=== PATIENT | male | born 1960 | race Two or more races ===

== ENCOUNTER 2016-10-21 16:00 | Inpatient (IN) | payer MEDICAID, OTHER ==
[~2016-10-21] VITALS: Ht 170.2 cm; Wt 72.3 kg
[2016-10-21] MEDS ORDERED: SODIUM CHLORIDE 0.9% 1,000 ML IV ONE (16:30)
[2016-10-21 16:49] LABS: Basophils # (auto) 0.1 uL; Basophils % (auto) 0.5 % (0.0-2.0); Eosinophils # (auto) 0.1 uL; Eosinophils % (auto) 0.9 % (0.0-7.0); Hematocrit 41.3 % (41.0-53.0); Hemoglobin 13.5 g/dL (13.5-17.5); Lymphocytes # (auto) 1.5 uL; Lymphocytes % (auto) 15.2 % (10.0-50.0); Mean Corpuscular Hemoglobin 28.9 pg (28.0-32.0); Mean Corpuscular Hgb Conc. 32.7 g/dL (32.0-36.0); Mean Corpuscular Volume 88.3 fL (80.0-100.0); Mean Platelet Volume 8.4 fL (7.4-10.4); Monocytes # (auto) 0.4 uL; Monocytes % (auto) 3.8 % (0.0-12.0); Neutrophils % (auto) 79.6 % (37.0-80.0); Platelet Count (auto) 304 10^3/uL (140-450); Red Cell Distribution Width 13.8 % (11.6-16.0)
[2016-10-21 17:13] LABS: Bilirubin, Total 0.3 mg/dL (0.2-1.0); Calcium 8.8 mg/dL (8.5-10.1); Potassium 4.2 mmol/L (3.5-5.1); Total Protein 7.1 g/dL (6.4-8.2)
[2016-10-21 17:26] LABS: INR 1.09 (0.9-1.15); Prothrombin Time 11.2 sec (9.37-12.3)
[2016-10-21] MEDS ORDERED: SODIUM CHLORIDE 0.9% 1,000 ML IVB ONE (17:37)
[2016-10-21] MEDS ORDERED: PANTOPRAZOLE SODIUM 40 MG/10 ML VIAL IV ONE ×2 (17:45→19:45)
[2016-10-21 18:36] LABS: Urine Bilirubin Negative (Negative); Urine Blood Negative /uL (Negative); Urine Color Yellow (Yellow); Urine Glucose Normal (Normal); Urine Hyaline Cast FEW /lpf (0 - 2); Urine Ketone Negative (Negative); Urine Mucus FEW (None Seen); Urine Nitrite Negative (Negative); Urine RBC 1 /hpf (0 - 3); Urine Squamous Epithelial Cell FEW /hpf (<5); Urine Urobilinogen Normal (Negative)
[2016-10-21] MEDS: SODIUM CHLORIDE 0.9% 1,000 ML IV SCH (19:39)
[2016-10-21] MEDS: LEVOFLOXACIN 500MG 100 ML IV SCH (19:44)
[2016-10-21] MEDS ORDERED: HYDROcodone-ACET 5/325MG TAB PO PRN (19:45)
[2016-10-21] MEDS ORDERED: NITROGLYCERIN 0.4 MG SL TAB SL PRN (19:45)
[2016-10-21] MEDS ORDERED: MORPHINE SULF INJ 2 MG/ML SYRINGE 1ML IV PRN ×2 (19:45)
[2016-10-21] MEDS ORDERED: LACTULOSE 20Gm/30ML SOLN PO PRN (19:45)
[2016-10-21] MEDS ORDERED: PROMETHAZINE HCL 25 MG/ML 1ML IV PRN (19:45)
[2016-10-21] MEDS ORDERED: TEMAZEPAM 15 MG CAP PO PRN (19:45)
[2016-10-21] MEDS ORDERED: ACETAMINOPHEN 500 MG TAB PO PRN (19:45)
[2016-10-21] MEDS ORDERED: LORazepam 0.5 MG TAB PO PRN (19:45)
[2016-10-21 20:00] LABS: Amylase 43 U/L (25-115)
[2016-10-21] MEDS: metroNIDAZOLE 500MG/100ML 100 ML IV SCH (20:14)
[2016-10-22] VITALS (7 sets, daily range): BP systolic 91–115; BP diastolic 48–64
[2016-10-22 01:12] LABS: Hematocrit 29.1 % (41.0-53.0); Hemoglobin 9.5 g/dL (13.5-17.5)
[2016-10-22] MEDS ORDERED: NAPR-223 PO (02:51)
[2016-10-22] MEDS ORDERED: FENO145T20 OR (02:51)
[2016-10-22] MEDS: SODIUM CHLORIDE 0.9% 1,000 ML IV SCH ×2 (03:39→13:10)
[2016-10-22] MEDS: metroNIDAZOLE 500MG/100ML 100 ML IV SCH ×3 (05:57→21:35)
[2016-10-22 06:51] LABS: Basophils # (auto) 0 uL; Basophils % (auto) 0.4 % (0.0-2.0); Eosinophils # (auto) 0.1 uL; Eosinophils % (auto) 1.8 % (0.0-7.0); Hematocrit 28.9 % (41.0-53.0); Hemoglobin 9.5 g/dL (13.5-17.5); Lymphocytes # (auto) 1.7 uL; Lymphocytes % (auto) 29.7 % (10.0-50.0); Mean Corpuscular Hemoglobin 29.2 pg (28.0-32.0); Mean Corpuscular Hgb Conc. 32.9 g/dL (32.0-36.0); Mean Corpuscular Volume 88.7 fL (80.0-100.0); Mean Platelet Volume 8.2 fL (7.4-10.4); Monocytes # (auto) 0.4 uL; Monocytes % (auto) 6.2 % (0.0-12.0); Neutrophils # (auto) 3.6 uL; Neutrophils % (auto) 61.9 % (37.0-80.0); Platelet Count (auto) 199 10^3/uL (140-450); Red Cell Distribution Width 14.1 % (11.6-16.0); White Blood Cell 5.9 10^3/uL (4.4-10.8)
[2016-10-22 07:20] LABS: Albumin 2.9 g/dL (3.4-5.0); BUN/Creatinine Ratio 20.5; Bilirubin, Total 0.3 mg/dL (0.2-1.0); Calcium 7.7 mg/dL (8.5-10.1); Potassium 3.8 mmol/L (3.5-5.1); Total Protein 5.1 g/dL (6.4-8.2)
[2016-10-22] MEDS: LEVOFLOXACIN 500MG 100 ML IV SCH (10:40)
[2016-10-22] MEDS: PANTOPRAZOLE SODIUM 40 MG/10 ML VIAL IV SCH (10:41)
[2016-10-22 11:57] LABS: Hematocrit 29.2 % (41.0-53.0); Hemoglobin 9.6 g/dL (13.5-17.5)
[2016-10-22] MEDS ORDERED: GOLYTELY 4L KIT PO ONE (13:15)
[2016-10-23 05:18] VITALS: BP 104/58
[2016-10-23] MEDS: SODIUM CHLORIDE 0.9% 1,000 ML IV SCH ×4 (06:26→13:15)
[2016-10-23] MEDS: metroNIDAZOLE 500MG/100ML 100 ML IV SCH ×3 (06:26→21:56)
[2016-10-23 07:04] LABS: Basophils # (auto) 0 uL; Basophils % (auto) 0.5 % (0.0-2.0); Eosinophils # (auto) 0.1 uL; Eosinophils % (auto) 2.2 % (0.0-7.0); Hematocrit 29.4 % (41.0-53.0); Hemoglobin 9.9 g/dL (13.5-17.5); Lymphocytes # (auto) 1.5 uL; Lymphocytes % (auto) 35.4 % (10.0-50.0); Mean Corpuscular Hemoglobin 29.4 pg (28.0-32.0); Mean Corpuscular Hgb Conc. 33.6 g/dL (32.0-36.0); Mean Corpuscular Volume 87.4 fL (80.0-100.0); Mean Platelet Volume 8.1 fL (7.4-10.4); Monocytes # (auto) 0.3 uL; Neutrophils # (auto) 2.4 uL; Neutrophils % (auto) 55.9 % (37.0-80.0); Platelet Count (auto) 194 10^3/uL (140-450); Red Cell Distribution Width 13.8 % (11.6-16.0); White Blood Cell 4.2 10^3/uL (4.4-10.8)
[2016-10-23] MEDS ORDERED: fentaNYL CITRATE 100 MCG/2 ML VL ONE (07:10)
[2016-10-23] MEDS ORDERED: LIDOCAINE 2%HCL (LOCAL ANESTH.) INJ 20ML MDV ONE (07:10)
[2016-10-23] MEDS ORDERED: SODIUM CHLORIDE LOCK 10 ML ONE (07:10)
[2016-10-23] MEDS ORDERED: diphenhdrAMINE HCL 50 MG/1 ML VL ONE (07:11)
[2016-10-23] MEDS ORDERED: LIDOCAINE VISCOUS 2% 15ML UD ONE (07:12)
[2016-10-23 07:26] LABS: Albumin 3.2 g/dL (3.4-5.0); BUN/Creatinine Ratio 11.3; Bilirubin, Total 0.2 mg/dL (0.2-1.0); Calcium 8.2 mg/dL (8.5-10.1); Magnesium 2.2 mg/dL (1.6-2.6); Potassium 4.1 mmol/L (3.5-5.1); Total Protein 5.8 g/dL (6.4-8.2)
[2016-10-23 07:27] LABS: INR 1.17 (0.9-1.15)
[2016-10-23] MEDS: MIDAZOLAM HCL 5 MG/ML-1ML VIAL ONE ×4 (08:56→09:15)
[2016-10-23] MEDS ORDERED: EPINEPHrine HCL 1 MG/10 ML SYRG ONE (08:59)
[2016-10-23 09:00] VITALS: BP 111/61
[2016-10-23] MEDS: fentaNYL CITRATE 100 MCG/2 ML VL ONE ×2 (09:04→09:15)
[2016-10-23] MEDS: LEVOFLOXACIN 500MG 100 ML IV SCH (10:29)
[2016-10-23] MEDS: PANTOPRAZOLE SODIUM 40 MG/10 ML VIAL IV SCH (10:29)
[2016-10-23 13:00] VITALS: BP 94/65
[2016-10-23 17:00] VITALS: BP 92/40
[2016-10-23 22:00] VITALS: BP 100/58
[2016-10-24 05:00] VITALS: BP 92/54
[2016-10-24] MEDS: SODIUM CHLORIDE 0.9% 1,000 ML IV SCH (05:36)
[2016-10-24 06:13] LABS: Basophils # (auto) 0 uL; Basophils % (auto) 0.5 % (0.0-2.0); Eosinophils # (auto) 0 uL; Eosinophils % (auto) 0.8 % (0.0-7.0); Hematocrit 27.1 % (41.0-53.0); Hemoglobin 8.8 g/dL (13.5-17.5); Lymphocytes # (auto) 1.5 uL; Lymphocytes % (auto) 31.1 % (10.0-50.0); Mean Corpuscular Hemoglobin 29.1 pg (28.0-32.0); Mean Corpuscular Hgb Conc. 32.7 g/dL (32.0-36.0); Mean Corpuscular Volume 89.1 fL (80.0-100.0); Mean Platelet Volume 8.3 fL (7.4-10.4); Monocytes # (auto) 0.3 uL; Monocytes % (auto) 6.2 % (0.0-12.0); Neutrophils % (auto) 61.4 % (37.0-80.0); Platelet Count (auto) 191 10^3/uL (140-450); Red Cell Distribution Width 13.7 % (11.6-16.0); White Blood Cell 4.9 10^3/uL (4.4-10.8)
[2016-10-24 06:25] LABS: Prothrombin Time 12.3 sec (9.37-12.3)
[2016-10-24 06:36] LABS: BUN/Creatinine Ratio 8.5; Calcium 8.1 mg/dL (8.5-10.1); Magnesium 2.2 mg/dL (1.6-2.6); Potassium 3.9 mmol/L (3.5-5.1)
[2016-10-24 06:46] LABS: INR 1.19 (0.9-1.15)
[2016-10-24] MEDS: metroNIDAZOLE 500MG/100ML 100 ML IV SCH ×2 (06:47→14:59)
[2016-10-24 09:00] VITALS: BP 97/45
[2016-10-24] MEDS: PANTOPRAZOLE SODIUM 40 MG/10 ML VIAL IV SCH (09:59)
[2016-10-24] MEDS: LEVOFLOXACIN 500MG 100 ML IV SCH (09:59)
[2016-10-24 12:43] LABS: Hematocrit 29.9 % (41.0-53.0); Hemoglobin 10.1 g/dL (13.5-17.5)
[2016-10-24 13:00] VITALS: BP 113/57
[2016-10-24 16:41] VITALS: BP 113/57
== END 2016-10-24 16:34 | disposition home or self-care (01) | DRG 253 ==
LOC: ER 16:10 → TELE 16:11 → TELE-EAST 22:34
PROVIDERS: ADMIT Internal Medicine; ATTEND Internal Medicine
PROC: 0DJD8ZZ Inspection of Lower Intestinal Tract, Via Natural or Artificial Opening Endoscopic (ICD-10-PCS; 2016-10-23)
PROC: 0W3P8ZZ Control Bleeding in Gastrointestinal Tract, Via Natural or Artificial Opening Endoscopic (ICD-10-PCS; principal; 2016-10-23 08:55)
PROC: 3E0G8GC Introduction of Other Therapeutic Substance into Upper GI, Via Natural or Artificial Opening Endoscopic (ICD-10-PCS; 2016-10-23 08:55)
DX: K55.21 Angiodysplasia of colon with hemorrhage (principal); N17.9 Acute kidney failure, unspecified; E87.0 Hyperosmolality and hypernatremia; I95.9 Hypotension, unspecified; C77.1 Secondary and unspecified malignant neoplasm of intrathoracic lymph nodes; N20.0 Calculus of kidney; K64.8 Other hemorrhoids; K92.1 Melena; M77.9 Enthesopathy, unspecified; D64.9 Anemia, unspecified; E78.1 Pure hyperglyceridemia; E86.0 Dehydration; R73.9 Hyperglycemia, unspecified; K57.30 Diverticulosis of large intestine without perforation or abscess without bleeding; Z82.49 Family history of ischemic heart disease and other diseases of the circulatory system; Z85.47 Personal history of malignant neoplasm of testis; Z92.3 Personal history of irradiation; Z88.5 Allergy status to narcotic agent; Z98.890 Other specified postprocedural states; Z79.899 Other long term (current) drug therapy
CPT/HCPCS: 36415; 43243; 43255; 45378; 71010; 74176; 80048; 80053; 80061; 81001; 82150; 82378; 83690; 83735; 85014; 85018; 85025; 85045; 85610; 85652; 86141; 86850; 86900; 86901; 93005; 96361; 96374; C9113; J1956; J2250; J3490

== ENCOUNTER 2022-01-07 22:49 | Emergency (ER) | payer OTHER, MEDICAID ==
[~2022-01-07] VITALS: Ht 170.2 cm; Wt 72.6 kg
[~2022-01-07 22:49] MED LIST: FENO145T27 OR; NAPR-223 PO
[2022-01-07] MEDS: diazePAM 5 MG TAB PO ONE (23:37)
[2022-01-07] MEDS ORDERED: HYDR50CA PO (23:51)
[2022-01-07 23:55] VITALS: BP 142/87
== END 2022-01-08 00:10 | disposition home or self-care (01) ==
LOC: ER 22:51
DX: F41.9 Anxiety disorder, unspecified (principal); R51.9 Headache, unspecified
CPT/HCPCS: 70450